=== PATIENT | male | born 1960 | race Caucasian/White ===

== ENCOUNTER 2019-01-09 03:24 | Emergency (ER) | payer MEDICARE ==
[~2019-01-09] VITALS: Ht 170.2 cm; Wt 61.4 kg
[2019-01-09 04:16] LABS: HEMATOCRIT 41.8 % (39.0-50.0); HEMOGLOBIN 14.4 g/dl (14.0-18.0); IMMATURE GRANULOCYTES 0.6 % (0.0-5.0); MEAN CELL VOLUME 92.3 fL CALC (80.0-100.0); MEAN CORPUSCULAR HGB 31.8 pG CALC (26.0-32.0); MEAN CORPUSCULAR HGB CONC 34.4 g/L CALC (32.0-36.0); NEUT# 9.4 thou/uL (1.82-7.42); RED BLOOD COUNT 4.53 mill/uL (4.70-6.10)
[2019-01-09 04:20] LABS: ALBUMIN 4.5 g/dL (3.2-5.0); ALKALINE PHOSPHATASE 67 u/l (38-126); ANION GAP 14 (6-22 (CALC)); BILIRUBIN, TOTAL 1.2 mg/dL (0.0-1.4); BUN 20 mg/dL (9-20); BUN/CREATININE RATIO 36 (12-20 (CALC)); CARBON DIOXIDE 27 mmol/l (22-30); CHLORIDE 102 mmol/l (95-108); CREATININE 0.6 mg/dL (0.7-1.3); ETHYL ALCOHOL 0 mg/dl (0-30); GFR > 60 ML/MIN (>=60 (CALC)); GFR FOR AFR.AMER. > 60 ML/MIN (>=60 (CALC)); POTASSIUM 4.4 mmol/l (3.5-5.1); SGOT/AST 40 u/l (17-59); SODIUM 139 mmol/l (137-146); TOTAL PROTEIN 7.8 g/dL (6.3-8.2)
[2019-01-09 04:23] LABS: ACT PARTIAL THROMBO TIME 30.6 SECONDS (20.0-32.5); INTERNATIONAL NORMALIZED RATIO 1.1 RATIO (0.7-1.3); PROTHROMBIN TIME 11.1 SECONDS (9.0-12.5)
[2019-01-09 05:53] VITALS: BP 154/80
== END 2019-01-09 05:53 | disposition short-term general hospital (02) ==
LOC: ED 03:24
PROVIDERS: Family Medicine
DX: S72.012A Unspecified intracapsular fracture of left femur, initial encounter for closed fracture (principal); H91.93 Unspecified hearing loss, bilateral; F17.210 Nicotine dependence, cigarettes, uncomplicated; V11.0XXA Pedal cycle driver injured in collision with other pedal cycle in nontraffic accident, initial encounter; Y93.55 Activity, bike riding; Y92.410 Unspecified street and highway as the place of occurrence of the external cause

== ENCOUNTER 2019-05-23 12:37 | Emergency (ER) | payer MEDICARE ==
[2019-05-23 13:00] VITALS: BP 145/86
== END 2019-05-23 14:22 | disposition left against medical advice (07) ==
LOC: ED 12:37 → LWOBS 14:21 → ED 14:21 → LWOBS 14:22
DX: Z91.19 Patient's noncompliance with other medical treatment and regimen (principal)

== ENCOUNTER 2019-05-28 04:28 | Emergency (ER) | payer MEDICARE ==
[2019-05-28 05:12] VITALS: BP 158/93
== END 2019-05-28 05:35 | disposition home or self-care (01) ==
LOC: ED 04:28
DX: K40.90 Unilateral inguinal hernia, without obstruction or gangrene, not specified as recurrent (principal); F17.210 Nicotine dependence, cigarettes, uncomplicated

== ENCOUNTER 2019-07-01 | Emergency (ER) | payer MEDICARE ==
[2019-07-01 23:38] LABS: HEMATOCRIT 42.3 % (39.0-50.0); HEMOGLOBIN 14.5 g/dl (14.0-18.0); IMMATURE GRANULOCYTES 0.3 % (0.0-5.0); MEAN CELL VOLUME 90.2 fL CALC (80.0-100.0); MEAN CORPUSCULAR HGB 30.9 pG CALC (26.0-32.0); MEAN CORPUSCULAR HGB CONC 34.3 g/dL CAL (32.0-36.0); NEUT# 4.49 thou/uL (1.82-7.42); RED BLOOD COUNT 4.69 mill/uL (4.70-6.10); RED CELL DISTRI WIDTH 13.2 % (11.5-15.5)
[2019-07-01 23:47] LABS: URINE BILIRUBIN - DIPSTICK NEGATIVE (NEGATIVE); URINE BLOOD DIPSTICK NEGATIVE (NEGATIVE); URINE COLOR YELLOW; URINE GLUCOSE - DIPSTICK NEGATIVE (NEGATIVE); URINE KETONE NEGATIVE (NEGATIVE); URINE LEUK ESTERASE NEGATIVE (NEGATIVE); URINE NITRITE - DIPSTICK NEGATIVE (Negative); URINE PH 6.5 (4.5-8.0); URINE PROTEIN - DIPSTICK TRACE mg/dL (NEG-TRACE); URINE SPECIFIC GRAVITY 1.025; URINE UROBILINOGEN - DIPSTICK 0.2 E.U./dL (0.2)
[2019-07-01 23:50] LABS: COCAINE NEGATIVE (NEGATIVE); METHADONE NEGATIVE (NEGATIVE); TETRAHYDROCANNABIONOL NEGATIVE (NEGATIVE)
[2019-07-01 23:51] LABS: BARBITURATES NEGATIVE (NEGATIVE); OXCYCODONE NEGATIVE (NEGATIVE); TRICYLIC ANTIDEPRESSANTS NEGATIVE (NEGATIVE)
[2019-07-01 23:51] LABS: ACT PARTIAL THROMBO TIME 30.6 SECONDS (20.0-32.5)
[2019-07-01 23:52] LABS: ALBUMIN 4.6 g/dL (3.2-5.0); ALKALINE PHOSPHATASE 70 u/l (38-126); AMYLASE 63 u/l (30-110); ANION GAP 13 (6-22 (CALC)); BILIRUBIN, TOTAL 0.8 mg/dL (0.0-1.4); BUN 24 mg/dL (9-20); BUN/CREATININE RATIO 25 (12-20 (CALC)); CARBON DIOXIDE 30 mmol/l (22-30); CHLORIDE 99 mmol/l (95-108); ETHYL ALCOHOL 0 mg/dl (0-30); GFR > 60 ML/MIN (>=60 (CALC)); GFR FOR AFR.AMER. > 60 ML/MIN (>=60 (CALC)); LIPASE 152 u/l (23-300); MAGNESIUM 2.1 mg/dL (1.6-2.3); POTASSIUM 4.8 mmol/l (3.5-5.1); SGOT/AST 37 u/l (17-59); SODIUM 137 mmol/l (137-146); TOTAL PROTEIN 7.9 g/dL (6.3-8.2)
[2019-07-02 00:12] LABS: GFR > 60 ML/MIN (>=60 (CALC)); GFR FOR AFR.AMER. > 60 ML/MIN (>=60 (CALC))
== END 2019-07-02 00:56 | disposition short-term general hospital (02) ==
PROC: 0T9B70Z Drainage of Bladder with Drainage Device, Via Natural or Artificial Opening (ICD-10-PCS; principal; 2019-07-01)
PROC: 0BH17EZ Insertion of Endotracheal Airway into Trachea, Via Natural or Artificial Opening (ICD-10-PCS; 2019-07-01)
DX: I62.9 Nontraumatic intracranial hemorrhage, unspecified (principal); G81.94 Hemiplegia, unspecified affecting left nondominant side; I16.1 Hypertensive emergency; F15.10 Other stimulant abuse, uncomplicated; H91.3 Deaf nonspeaking, not elsewhere classified; F17.200 Nicotine dependence, unspecified, uncomplicated
CPT/HCPCS: J2060; L0120